=== PATIENT | female | born 1980 | race Caucasian/White ===

== ENCOUNTER 2017-08-29 20:13 | Emergency (ER) | payer MEDICAID ==
[~2017-08-29] VITALS: Ht 157.5 cm; Wt 90.7 kg
[2017-08-29] MEDS ORDERED: KETOROLAC TROMETH 60MG/2ML VIAL IM ONE (22:00)
[2017-08-29 22:23] VITALS: BP 137/91
[2017-08-29] MEDS ORDERED: CYCLOBENZAPRINE HCL 10 MG TAB PO ONE (22:45)
== END 2017-08-29 22:54 | disposition home or self-care (01) ==
LOC: EDBD 20:13 → ER 20:17
DX: M79.671 Pain in right foot (principal); M25.511 Pain in right shoulder; K08.89 Other specified disorders of teeth and supporting structures; I10 Essential (primary) hypertension; V49.9XXA Car occupant (driver) (passenger) injured in unspecified traffic accident, initial encounter; Y93.89 Activity, other specified; Y92.488 Other paved roadways as the place of occurrence of the external cause; Y99.8 Other external cause status
CPT/HCPCS: 81025; 96372; 99283; J1885